=== PATIENT | male | born 1975 | race Two or more races ===

== ENCOUNTER → 2020-04-17 09:54 | Outpatient (CLI) | payer OTHER | END | disposition home or self-care (01) | LOC: LAB 09:54 | PROVIDERS: ATTEND Surgery | DX: C20 Malignant neoplasm of rectum (principal); R59.0 Localized enlarged lymph nodes; K62.5 Hemorrhage of anus and rectum; Z03.818 Encounter for observation for suspected exposure to other biological agents ruled out ==

== ENCOUNTER 2020-04-24 07:31 | Day surgery (SDC) | payer OTHER | END 2020-04-24 12:50 | disposition home or self-care (01) | LOC: AMB-ENDOS 07:31 | PROVIDERS: ATTEND Surgery | DX: D12.8 Benign neoplasm of rectum (principal) ==

== ENCOUNTER → 2020-11-13 | Day surgery (SDC) | payer OTHER | END | disposition home or self-care (01) | LOC: ADM 11-06 13:15 → AMB-ENDOS 09:23 | PROVIDERS: ATTEND Surgery | DX: D12.8 Benign neoplasm of rectum (principal); K29.50 Unspecified chronic gastritis without bleeding; Z20.822 Contact with and (suspected) exposure to COVID-19 ==